=== PATIENT | male | born 1945 | race Caucasian/White ===

== ENCOUNTER 2016-10-07 13:50 | Inpatient (IN) | payer OTHER, MEDICAID ==
[~2016-10-07] VITALS: Ht 182.9 cm; Wt 81.6 kg
[2016-10-07] VITALS (12 sets, daily range): BP systolic 103–127; BP diastolic 47–71; PULSE 45–90; RESP 16–26; TEMP 95.6–99.3; O2SAT 99–100
[~2016-10-07 13:50] MED LIST: PIPERACILLIN/TAZOBACTAM 3.375 GM/VIAL (ZOSYN) IV ONE; POTASSIUM CHLORIDE 20 MEQ TAB.PRT.SR ONE; POTASSIUM CHLORIDE 40 MEQ in NS 250 ML IV ONE
[2016-10-07 14:29] LABS: PROTHROMBIN TIME 11.1 SECS (9.5-12.5)
[2016-10-07 14:30] LABS: CALCIUM 9.7 mg/dL (8.4-11.0); HEMATOCRIT 43.1 % (36-54); MEAN CORPUSCULAR HEMOGLOBIN 29 pg (27-31); MEAN CORPUSCULAR HGB CONC 32 % (32-36); MEAN CORPUSCULAR VOLUME 90 fL (79.0-98.0); PLATELET COUNT (AUTO) 310 K/uL (130-430); POTASSIUM 3.1 mmol/L (3.5-5.1); RED BLOOD CELL COUNT(AUTO) 4.81 MIL/uL (4.2-6.2); RED CELL DISTRIBUTION WIDTH 15.1 % (9.0-15.0); WHITE BLOOD COUNT (AUTO) 8.7 K/uL (4.8-10.8)
[2016-10-07 14:31] LABS: ALBUMIN 3.1 g/dL (3.4-4.8); BASOPHILS % (AUTO) 0.5 % (0.0-2.0); CREATININE 0.65 mg/dL (0.55-1.30); EOSINOPHILS # (AUTO) 0.1 K/uL (0.0-0.4); EOSINOPHILS % (AUTO) 0.8 % (0.0-4.0); LYMPHOCYTES # (AUTO) 1.2 K/uL (1.0-5.5); LYMPHOCYTES % (AUTO) 14.1 % (20.5-51.5); MONOCYTES # (AUTO) 0.6 K/uL (0.0-1.0); MONOCYTES % (AUTO) 6.8 % (1.7-9.3); NEUTROPHILS # (AUTO) 6.8 K/uL (1.8-7.7); NEUTROPHILS % (AUTO) 77.8 % (40.0-70.0); TOTAL BILIRUBIN 0.2 mg/dL (0.0-1.0); TOTAL PROTEIN, SERUM 8.6 g/dL (6.4-8.3)
[2016-10-07] MEDS: LITHIUM CARBONATE 300 MG TABLET.SA PO SCH ×2 (14:45→21:48)
[2016-10-07] MEDS: PIPERACILLIN/TAZO 3.375/DEX-IS 50 ML IV SCH ×2 (14:45→18:16)
[2016-10-07] MEDS: VANCOMYCIN HCL 1,000 MG in NS 250 ML IV SCH ×2 (15:30→21:50)
[2016-10-07] MEDS ORDERED: FAMOTIDINE 20 MG TABLET PO ONE (15:45)
[2016-10-07] MEDS ORDERED: ASPIRIN 81 MG TAB.CHEW PO ONE (15:45)
[2016-10-07] MEDS ORDERED: KETOCONAZOLE 2% TP ONE (15:45)
[2016-10-07] MEDS: KCL 20 mEq in D5NS 1000 mL 1,000 ML IV SCH (16:00)
[2016-10-07] MEDS: FAMOTIDINE 20 MG TABLET PO SCH (21:48)
[2016-10-07] MEDS: ENOXAPARIN SODIUM 40 MG/0.4 ML SYRINGE SUBCUT SCH (21:48)
[2016-10-07] MEDS ORDERED: FLU VACC QS 2016-17(36MOS+)/PF 0.5 ML/SYR SYRINGE I.M. PRN (23:30)
[2016-10-08] VITALS (11 sets, daily range): BP systolic 93–154; BP diastolic 42–88; PULSE 80–103; RESP 12–28; TEMP 97.4–98.9; O2SAT 83–100; Ht 182.9 cm; Wt 81.6 kg
[2016-10-08] MEDS: PIPERACILLIN/TAZO 3.375/DEX-IS 50 ML IV SCH ×4 (00:52→18:00)
[2016-10-08] MEDS: VANCOMYCIN HCL 1,000 MG in NS 250 ML IV SCH ×3 (05:51→21:45)
[2016-10-08] MEDS: LITHIUM CARBONATE 300 MG TABLET.SA PO SCH ×2 (10:04→20:10)
[2016-10-08] MEDS: ASPIRIN 81 MG TAB.CHEW PO SCH (10:04)
[2016-10-08] MEDS: FAMOTIDINE 20 MG TABLET PO SCH ×2 (10:05→20:11)
[2016-10-08] MEDS: HYDROcodone/ACETAMIN 5-325 MG TAB (NORCO/ VICODIN) PO PRN (12:29)
[2016-10-08] MEDS: KCL 20 mEq in D5NS 1000 mL 1,000 ML IV SCH (15:16)
[2016-10-08] MEDS: ENOXAPARIN SODIUM 40 MG/0.4 ML SYRINGE SUBCUT SCH (20:11)
[2016-10-09] VITALS: BP 134/72; PULSE 78; RESP 18; TEMP 98.2; O2SAT 96
[2016-10-09] MEDS: PIPERACILLIN/TAZO 3.375/DEX-IS 50 ML IV SCH ×2 (00:05→05:20)
[2016-10-09 04:00] VITALS: BP 122/69; PULSE 70; RESP 17; TEMP 97.9; O2SAT 95
[2016-10-09] MEDS: VANCOMYCIN HCL 1,000 MG in NS 250 ML IV SCH (05:21)
[2016-10-09 08:00] VITALS: BP 134/85; PULSE 80; RESP 18; TEMP 96.5; O2SAT 99
[2016-10-09] MEDS: LITHIUM CARBONATE 300 MG TABLET.SA PO SCH ×2 (09:42→20:43)
[2016-10-09] MEDS: ASPIRIN 81 MG TAB.CHEW PO SCH (09:42)
[2016-10-09] MEDS: LACTOBACILLUS RHAMNOSUS GG 1 CAP CAPSULE PO SCH ×2 (09:45→20:43)
[2016-10-09] MEDS: FAMOTIDINE 20 MG TABLET PO SCH ×2 (09:46→20:43)
[2016-10-09 12:00] VITALS: BP 147/86; PULSE 72; RESP 18; TEMP 97.5; O2SAT 99
[2016-10-09] MEDS: ceFAZolin SODIUM 1 GM in D5W 50 ML IV SCH ×2 (14:08→21:32)
[2016-10-09 16:00] VITALS: BP 136/79; PULSE 63; RESP 18; TEMP 97.5; O2SAT 98
[2016-10-09] MEDS: KCL 20 mEq in D5NS 1000 mL 1,000 ML IV SCH (19:46)
[2016-10-09 19:59] VITALS: BP 133/87; PULSE 85; RESP 18; TEMP 98.1; O2SAT 90
[2016-10-09] MEDS: ENOXAPARIN SODIUM 40 MG/0.4 ML SYRINGE SUBCUT SCH (20:43)
[2016-10-10 00:18] VITALS: BP 135/65; PULSE 76; RESP 17; TEMP 96.6; O2SAT 98
[2016-10-10 04:00] VITALS: BP 132/66; PULSE 80; RESP 16; TEMP 97.9; O2SAT 96
[2016-10-10] MEDS: ceFAZolin SODIUM 1 GM in D5W 50 ML IV SCH (05:02)
[2016-10-10 08:00] VITALS: BP 164/93; PULSE 80; RESP 18; TEMP 97.3; O2SAT 100
[2016-10-10] MEDS: LITHIUM CARBONATE 300 MG TABLET.SA PO SCH ×2 (11:32→21:27)
[2016-10-10] MEDS: ASPIRIN 81 MG TAB.CHEW PO SCH (11:33)
[2016-10-10] MEDS: LACTOBACILLUS RHAMNOSUS GG 1 CAP CAPSULE PO SCH ×2 (11:33→21:27)
[2016-10-10] MEDS: KCL 20 mEq in D5NS 1000 mL 1,000 ML IV SCH (11:33)
[2016-10-10] MEDS: FAMOTIDINE 20 MG TABLET PO SCH ×2 (11:34→21:27)
[2016-10-10 12:00] VITALS: BP 150/83; PULSE 78; RESP 20; TEMP 96.7; O2SAT 99
[2016-10-10] MEDS ORDERED: CEPHALEXIN 500 MG CAPSULE PO ONE (15:00)
[2016-10-10 16:00] VITALS: BP 148/81; PULSE 72; RESP 21; TEMP 96.6; O2SAT 97
[2016-10-10] MEDS: CEPHALEXIN 500 MG CAPSULE PO SCH (17:33)
[2016-10-10 20:00] VITALS: BP 152/73; PULSE 74; RESP 20; TEMP 98; O2SAT 100
[2016-10-10] MEDS: ENOXAPARIN SODIUM 40 MG/0.4 ML SYRINGE SUBCUT SCH (21:00)
[2016-10-11] VITALS: BP 143/85; PULSE 63; RESP 17; TEMP 97.5; O2SAT 98
[2016-10-11] MEDS: KCL 20 mEq in D5NS 1000 mL 1,000 ML IV SCH ×2 (01:07→17:53)
[2016-10-11] MEDS: CEPHALEXIN 500 MG CAPSULE PO SCH ×5 (01:08→23:12)
[2016-10-11 04:15] VITALS: BP 151/93; PULSE 74; RESP 18; TEMP 97.9; O2SAT 96
[2016-10-11 08:00] VITALS: BP 138/64; PULSE 74; RESP 18; TEMP 97; O2SAT 99
[2016-10-11] MEDS: LITHIUM CARBONATE 300 MG TABLET.SA PO SCH ×2 (09:20→22:36)
[2016-10-11] MEDS: ASPIRIN 81 MG TAB.CHEW PO SCH (09:20)
[2016-10-11] MEDS: FAMOTIDINE 20 MG TABLET PO SCH ×2 (09:20→22:36)
[2016-10-11] MEDS: LACTOBACILLUS RHAMNOSUS GG 1 CAP CAPSULE PO SCH ×2 (09:21→22:36)
[2016-10-11 12:00] VITALS: BP 132/64; PULSE 68; RESP 18; TEMP 98.8; O2SAT 98
[2016-10-11] MEDS: BALSAM PERU/CASTOR OIL 60 GM OINT...G. TP SCH (12:46)
[2016-10-11 16:00] VITALS: BP 136/76; PULSE 67; RESP 18; TEMP 97.8; O2SAT 99
[2016-10-11] MEDS: ENOXAPARIN SODIUM 40 MG/0.4 ML SYRINGE SUBCUT SCH (22:37)
[2016-10-11] MEDS ORDERED: HALOPERIDOL LACTATE 5 MG/ML VIAL IM ONE (23:45)
[2016-10-11] MEDS ORDERED: HALOPERIDOL LACTATE 5 MG/ML VIAL ONE (23:47)
[2016-10-12] MEDS: KCL 20 mEq in D5NS 1000 mL 1,000 ML IV SCH ×2 (03:40→17:00)
[2016-10-12] MEDS: CEPHALEXIN 500 MG CAPSULE PO SCH ×3 (06:19→18:00)
[2016-10-12 08:43] VITALS: BP 148/69; PULSE 70; RESP 15; TEMP 97; O2SAT 100
[2016-10-12] MEDS: ASPIRIN 81 MG TAB.CHEW PO SCH (10:10)
[2016-10-12] MEDS: LACTOBACILLUS RHAMNOSUS GG 1 CAP CAPSULE PO SCH ×2 (10:10→20:41)
[2016-10-12] MEDS: QUEtiapine FUMARATE 25 MG TABLET PO SCH ×2 (10:10→15:00)
[2016-10-12] MEDS: LITHIUM CARBONATE 300 MG TABLET.SA PO SCH ×2 (10:10→20:42)
[2016-10-12] MEDS: FAMOTIDINE 20 MG TABLET PO SCH ×2 (10:10→20:41)
[2016-10-12 12:00] VITALS: BP 131/68; PULSE 63; RESP 21; TEMP 97; O2SAT 100
[2016-10-12] MEDS: BALSAM PERU/CASTOR OIL 60 GM OINT...G. TP SCH (12:21)
[2016-10-12 16:00] VITALS: BP 148/78; PULSE 67; RESP 21; TEMP 98; O2SAT 99
[2016-10-12] MEDS: QUEtiapine FUMARATE 100 MG TABLET PO SCH (20:41)
[2016-10-12] MEDS: HYDROcodone/ACETAMIN 5-325 MG TAB (NORCO/ VICODIN) PO PRN (20:42)
[2016-10-12] MEDS: ENOXAPARIN SODIUM 40 MG/0.4 ML SYRINGE SUBCUT SCH (20:43)
[2016-10-12] MEDS: LORazepam 1 MG TABLET PO PRN (21:41)
[2016-10-13 00:52] VITALS: BP 126/61; PULSE 66; RESP 18; TEMP 98; O2SAT 96
[2016-10-13] MEDS: CEPHALEXIN 500 MG CAPSULE PO SCH ×4 (06:00→17:24)
[2016-10-13] MEDS: KCL 20 mEq in D5NS 1000 mL 1,000 ML IV SCH ×2 (06:20→19:40)
[2016-10-13] MEDS: BALSAM PERU/CASTOR OIL 60 GM OINT...G. TP SCH (09:00)
[2016-10-13] MEDS: QUEtiapine FUMARATE 25 MG TABLET PO SCH ×2 (09:17→16:22)
[2016-10-13] MEDS: FAMOTIDINE 20 MG TABLET PO SCH ×2 (09:17→21:00)
[2016-10-13] MEDS: ASPIRIN 81 MG TAB.CHEW PO SCH (09:17)
[2016-10-13] MEDS: LITHIUM CARBONATE 300 MG TABLET.SA PO SCH ×2 (09:17→21:00)
[2016-10-13] MEDS: LORazepam 1 MG TABLET PO PRN (09:19)
[2016-10-13] MEDS: LACTOBACILLUS RHAMNOSUS GG 1 CAP CAPSULE PO SCH ×2 (09:20→21:00)
[2016-10-13 12:18] VITALS: BP 122/63; PULSE 68; RESP 17; TEMP 97.1; O2SAT 98
[2016-10-13 16:13] VITALS: BP 128/68; PULSE 72; RESP 18; TEMP 97.9; O2SAT 98
[2016-10-13 20:00] VITALS: BP 110/70; PULSE 80; RESP 16; TEMP 98.5; O2SAT 96
[2016-10-13] MEDS: ENOXAPARIN SODIUM 40 MG/0.4 ML SYRINGE SUBCUT SCH (21:00)
[2016-10-13] MEDS: QUEtiapine FUMARATE 100 MG TABLET PO SCH (21:00)
[2016-10-14 00:15] VITALS: BP 106/68; PULSE 76; RESP 18; TEMP 97.8; O2SAT 98
[2016-10-14 03:47] VITALS: BP 140/67; PULSE 72; RESP 18; TEMP 98.4; O2SAT 98
[2016-10-14] MEDS: CEPHALEXIN 500 MG CAPSULE PO SCH ×4 (06:00→17:42)
[2016-10-14] MEDS: LITHIUM CARBONATE 300 MG TABLET.SA PO SCH ×2 (09:00→20:51)
[2016-10-14] MEDS: ASPIRIN 81 MG TAB.CHEW PO SCH (09:00)
[2016-10-14] MEDS: FAMOTIDINE 20 MG TABLET PO SCH ×2 (09:00→20:52)
[2016-10-14] MEDS: QUEtiapine FUMARATE 25 MG TABLET PO SCH ×2 (09:00→15:00)
[2016-10-14] MEDS: BALSAM PERU/CASTOR OIL 60 GM OINT...G. TP SCH (09:00)
[2016-10-14 12:49] VITALS: BP 135/66; PULSE 65; RESP 17; TEMP 98.2; O2SAT 98
[2016-10-14 16:25] VITALS: BP 132/62; PULSE 70; RESP 18; TEMP 98.1; O2SAT 98
[2016-10-14] MEDS: ENOXAPARIN SODIUM 40 MG/0.4 ML SYRINGE SUBCUT SCH (20:52)
[2016-10-14] MEDS: QUEtiapine FUMARATE 100 MG TABLET PO SCH (20:52)
[2016-10-15 00:35] VITALS: BP 149/88; PULSE 74; RESP 18; TEMP 97.4; O2SAT 99
[2016-10-15 04:07] VITALS: BP 158/81; PULSE 74; RESP 18; TEMP 97.2; O2SAT 100
[2016-10-15] MEDS: KCL 20 mEq in D5NS 1000 mL 1,000 ML IV SCH ×2 (05:20→17:47)
[2016-10-15] MEDS: CEPHALEXIN 500 MG CAPSULE PO SCH ×4 (05:22→17:46)
[2016-10-15] MEDS: ASPIRIN 81 MG TAB.CHEW PO SCH (09:41)
[2016-10-15] MEDS: LITHIUM CARBONATE 300 MG TABLET.SA PO SCH ×2 (09:41→21:00)
[2016-10-15] MEDS: FAMOTIDINE 20 MG TABLET PO SCH ×2 (09:41→21:00)
[2016-10-15] MEDS: QUEtiapine FUMARATE 25 MG TABLET PO SCH ×2 (09:41→14:40)
[2016-10-15] MEDS: BALSAM PERU/CASTOR OIL 60 GM OINT...G. TP SCH (09:42)
[2016-10-15 09:54] VITALS: BP 121/75; PULSE 70; RESP 16; TEMP 97.6; O2SAT 99
[2016-10-15 12:37] VITALS: BP 120/61; PULSE 56; RESP 18; TEMP 96.8; O2SAT 98
[2016-10-15 16:23] VITALS: BP 141/65; PULSE 77; RESP 17; TEMP 97.8; O2SAT 90
[2016-10-15 19:50] VITALS: BP 121/60; PULSE 71; RESP 20; TEMP 98.1; O2SAT 98
[2016-10-15] MEDS: ENOXAPARIN SODIUM 40 MG/0.4 ML SYRINGE SUBCUT SCH (21:00)
[2016-10-15] MEDS: QUEtiapine FUMARATE 100 MG TABLET PO SCH (21:00)
[2016-10-16 00:16] VITALS: BP 135/75; PULSE 80; RESP 18; TEMP 98.6; O2SAT 98
[2016-10-16] MEDS: CEPHALEXIN 500 MG CAPSULE PO SCH ×4 (05:28→17:35)
[2016-10-16 08:00] VITALS: BP 157/82; PULSE 63; RESP 16; TEMP 98.2; O2SAT 100
[2016-10-16] MEDS: KCL 20 mEq in D5NS 1000 mL 1,000 ML IV SCH ×2 (08:00→21:20)
[2016-10-16] MEDS: FAMOTIDINE 20 MG TABLET PO SCH ×2 (08:24→20:43)
[2016-10-16] MEDS: ASPIRIN 81 MG TAB.CHEW PO SCH (08:24)
[2016-10-16] MEDS: QUEtiapine FUMARATE 25 MG TABLET PO SCH ×2 (08:24→15:09)
[2016-10-16] MEDS: LITHIUM CARBONATE 300 MG TABLET.SA PO SCH ×2 (08:24→20:43)
[2016-10-16] MEDS: BALSAM PERU/CASTOR OIL 60 GM OINT...G. TP SCH (09:00)
[2016-10-16 12:40] VITALS: BP 131/67; PULSE 67; RESP 17; TEMP 96.8; O2SAT 100
[2016-10-16 16:22] VITALS: BP 126/78; PULSE 64; RESP 16; TEMP 98.7; O2SAT 98
[2016-10-16 20:00] VITALS: BP 128/70; PULSE 74; RESP 18; TEMP 98.6; O2SAT 100
[2016-10-16] MEDS: QUEtiapine FUMARATE 100 MG TABLET PO SCH (20:43)
[2016-10-16] MEDS: ENOXAPARIN SODIUM 40 MG/0.4 ML SYRINGE SUBCUT SCH (20:44)
[2016-10-17 00:28] VITALS: BP 119/72; PULSE 80
[2016-10-17] MEDS: CEPHALEXIN 500 MG CAPSULE PO SCH (01:49)
[2016-10-17 04:29] VITALS: BP 147/68; PULSE 82; RESP 20; TEMP 98.2; O2SAT 99
[2016-10-17] MEDS: QUEtiapine FUMARATE 25 MG TABLET PO SCH (10:04)
[2016-10-17] MEDS: FAMOTIDINE 20 MG TABLET PO SCH (10:04)
[2016-10-17] MEDS: ASPIRIN 81 MG TAB.CHEW PO SCH (10:04)
[2016-10-17] MEDS: LITHIUM CARBONATE 300 MG TABLET.SA PO SCH (10:04)
[2016-10-17] MEDS: KCL 20 mEq in D5NS 1000 mL 1,000 ML IV SCH (10:40)
[2016-10-17 12:00] VITALS: BP 112/59; PULSE 71; RESP 18; TEMP 98.3; O2SAT 99
[2016-10-17 12:47] VITALS: BP 112/59; PULSE 71; RESP 18; TEMP 98.3; O2SAT 99
== END 2016-10-17 13:30 | DRG 871 ==
LOC: EDBD 13:50 → SIC 13:50 → SMU 10-08 09:25
PROVIDERS: ADMIT Family Medicine; ATTEND Family Medicine
DX: A41.9 Sepsis, unspecified organism (principal); G93.41 Metabolic encephalopathy; J18.9 Pneumonia, unspecified organism; L03.115 Cellulitis of right lower limb; L03.114 Cellulitis of left upper limb; L03.113 Cellulitis of right upper limb; E44.1 Mild protein-calorie malnutrition; L03.116 Cellulitis of left lower limb; F31.9 Bipolar disorder, unspecified; B35.3 Tinea pedis; F29 Unspecified psychosis not due to a substance or known physiological condition; F19.90 Other psychoactive substance use, unspecified, uncomplicated; Z68.24 Body mass index [BMI] 24.0-24.9, adult; Z59.0 Homelessness
CPT/HCPCS: 36415; 71020-TC; 80053; 83605; 85025; 85610-TC; 87081; 93005; 96365; 97110-GP; 97116-GP; 97530-GP; 99285; J0690; J1630; J1650; J2543; J3370; J3480; J7040; J7050; J7060; Q2037